=== PATIENT | male | born 1955 | race Caucasian/White ===

== ENCOUNTER 2019-11-23 09:18 | Inpatient (IN) ==
[2019-11-23] MEDS ORDERED: Aspirin 325 MG TABLET PO ONE (09:58)
[2019-11-23 10:02] LABS: Basophils # 0.1 K/mcL (0.0-0.2); Basophils % 0.4 %; Eosinophils # 0.1 K/mcL (0.0-0.6); Eosinophils % 0.8 %; Hematocrit 33.9 % (37.5-50.1); Hemoglobin 11.2 g/dL (12.9-16.9); Immature Granulocytes % 0.9 % (0-4); Lymphocytes # 1.1 K/mcL (0.6-4.6); Lymphocytes % 6.8 %; Mean Corpuscular Hemoglobin 32.7 pg (28.0-33.3); Mean Corpuscular Volume 98.8 fL (83.0-100.0); Monocytes # 1.5 K/mcL (0.0-1.3); Monocytes % 9.6 %; Neutrophils # 12.9 K/mcL (1.6-8.9); Platelet Count 286 K/mcL (140-400); Red Blood Count 3.43 M/mcL (4.19-5.50); Red Cell Distribution Width 15.6 % (11.5-14.5); Segmented Neutrophils % 81.5 %; White Blood Count 15.8 K/mcL (4.3-11.1)
[2019-11-23 10:12] LABS: Prothrombin Time 11.1 Seconds (9.4-12.1)
[2019-11-23 10:15] LABS: Activated Partial Thrombo Time 33.1 Seconds (26.0-36.0)
[2019-11-23 10:20] LABS: Albumin 3.3 g/dL (3.5-5.7); Albumin/Globulin Ratio 0.9 (1.1-2.2); Bilirubin,Direct 0.1 mg/dL (0.0-0.2); Bilirubin,Indirect 0.3 mg/dL (0.0-1.0); Bilirubin,Total 0.4 mg/dL (0.3-1.0); Calcium 9.2 mg/dL (8.6-10.3); Globulin 3.8 g/dL (2.4-3.5); Potassium 3.9 mEq/L (3.5-5.1); Total Protein 7.1 g/dL (6.4-8.9); Troponin I 56.94 ng/mL (< 0.04)
[2019-11-23] MEDS ORDERED: *HR* Heparin 5,000 UNIT/ML VIAL IVP PRN (10:30)
[2019-11-23] MEDS ORDERED: *HR* Heparin 5,000 UNIT/ML VIAL IVP ONE (10:30)
[2019-11-23] MEDS ORDERED: *HR* Ticagrelor 90 MG TABLET PO ONE (10:30)
[2019-11-23] MEDS ORDERED: Heparin 25,000 UNIT/250 ML D5W 25,000 UNIT/250 ML IV.SOLN IVC SCH (10:30)
[2019-11-23] MEDS ORDERED: ISOVUE-370 200 ML INFUS..BTL ONE ×2 (10:35→12:28)
[2019-11-23] MEDS ORDERED: 0.9 % Sodium Chloride 2,000 ML ONE (10:35)
[2019-11-23] MEDS ORDERED: *HR* Heparin 10,000 UNIT/10 ML VIAL ONE (10:35)
[2019-11-23] MEDS ORDERED: Nitroglycerin 1,000 MCG/10 ML VIAL IV ONE (10:35)
[2019-11-23] MEDS ORDERED: Heparin 1,000 UNITS/500 mL 500 ML ONE (10:35)
[2019-11-23] MEDS ORDERED: Aspirin 81 MG TAB.CHEW ONE (10:37)
[2019-11-23] MEDS ORDERED: *HR* Ticagrelor 90 MG TABLET ONE (10:37)
[2019-11-23] MEDS ORDERED: *HR* Bivalirudin 250 MG VIAL IVC ONE (11:29)
[2019-11-23] MEDS ORDERED: *HR* FentaNYL (PF) 100 MCG/2 ML VIAL ONE (11:30)
[2019-11-23] MEDS ORDERED: *HR* Midazolam HCl 2 MG/2 ML VIAL ONE (11:30)
[2019-11-23] MEDS ORDERED: Nitroglycerin 0.4 MG TAB.SUBL SL PRN (13:15)
[2019-11-23] MEDS ORDERED: Perflutren Lipid Microsphere 1.3 ML in 0.9 % Sodium Chloride 8.7 ML IVP PRN (13:15)
[2019-11-23 15:25] LABS: Hematocrit 30.8 % (37.5-50.1); Hemoglobin 10.3 g/dL (12.9-16.9); Mean Corpuscular HGB Conc 33.4 g/dL (31.6-35.5); Mean Corpuscular Volume 98.7 fL (83.0-100.0); Mean Platelet Volume 10.9 fL (9.4-12.4); Platelet Count 251 K/mcL (140-400); Red Blood Count 3.12 M/mcL (4.19-5.50); Red Cell Distribution Width 15.4 % (11.5-14.5); White Blood Count 12.9 K/mcL (4.3-11.1)
[2019-11-23 15:31] LABS: Heparin anti-factor XA UFH 0.15 IU/mL (0.30-0.70)
[2019-11-23 15:32] LABS: INR 1.3; Prothrombin Time 14.5 Seconds (9.4-12.1)
[2019-11-23] MEDS: Perit. Dialysis with Dex 2.5 % 2,000 ML PERITONEAL SCH ×2 (15:38→21:38)
[2019-11-23] MEDS: amLODIPine 5 MG TABLET PO SCH (15:48)
[2019-11-23] MEDS ORDERED: Perit. Dialysis with Dex 2.5 % 12,000 ML PERITONEAL ONE (20:00)
[2019-11-23] MEDS: Budesonide/Formoterol 160/4.5 1 PUFF INH IH SCH (21:59)
[2019-11-24 04:03] LABS: VBG Ionized Calcium 1.04 mmol/L (1.15-1.35)
[2019-11-24 04:03] LABS: Basophils % 0.3 %; Eosinophils # 0.1 K/mcL (0.0-0.6); Eosinophils % 0.7 %; Hematocrit 30.6 % (37.5-50.1); Hemoglobin 10.4 g/dL (12.9-16.9); Immature Granulocytes % 0.5 % (0-4); Lymphocytes # 0.8 K/mcL (0.6-4.6); Lymphocytes % 5.7 %; Mean Corpuscular Hemoglobin 32.7 pg (28.0-33.3); Mean Corpuscular Volume 96.2 fL (83.0-100.0); Mean Platelet Volume 10.9 fL (9.4-12.4); Monocytes # 1.4 K/mcL (0.0-1.3); Monocytes % 9.4 %; Neutrophils # 12.3 K/mcL (1.6-8.9); Platelet Count 265 K/mcL (140-400); Red Blood Count 3.18 M/mcL (4.19-5.50); Red Cell Distribution Width 15.3 % (11.5-14.5); Segmented Neutrophils % 83.4 %; White Blood Count 14.7 K/mcL (4.3-11.1)
[2019-11-24 04:19] LABS: Albumin 2.8 g/dL (3.5-5.7); Albumin/Globulin Ratio 0.9 (1.1-2.2); Bilirubin,Total 0.3 mg/dL (0.3-1.0); Calcium 8.6 mg/dL (8.6-10.3); Globulin 3.2 g/dL (2.4-3.5); Magnesium 1.4 mg/dL (1.6-2.6); Phosphorous 5.2 mg/dL (2.7-4.5); Potassium 3.6 mEq/L (3.5-5.1)
[2019-11-24 04:24] LABS: Troponin I 33.71 ng/mL (< 0.04)
[2019-11-24 04:25] LABS: Calcium 8.5 mg/dL (8.6-10.3); Chol/HDL Ratio 2.2 (0-4.9); Potassium 3.6 mEq/L (3.5-5.1)
[2019-11-24] MEDS ORDERED: *HR* Heparin 5,000 UNIT/ML VIAL SQ SCH (06:00)
[2019-11-24] MEDS: Perit. Dialysis with Dex 2.5 % 2,000 ML PERITONEAL SCH ×3 (08:20→17:37)
[2019-11-24] MEDS ORDERED: Renal Vitamin 1 CAP CAPSULE PO SCH (09:00)
[2019-11-24] MEDS ORDERED: Aspirin 81 MG TAB.CHEW PO SCH (09:00)
[2019-11-24] MEDS ORDERED: *HR* Ticagrelor 90 MG TABLET PO SCH (09:00)
[2019-11-24] MEDS: amLODIPine 5 MG TABLET PO SCH (09:13)
[2019-11-24] MEDS: PERIT DIALYSIS WITH DEX 2.5% PERITONEAL SCH ×2 (09:14→15:03)
[2019-11-24] MEDS ORDERED: Ondansetron ODT 4 MG TAB.RAPDIS PO PRN ×2 (09:56→15:51)
[2019-11-24] MEDS ORDERED: Ipratropium/Albuterol Neb 3 ML IH PRN (09:56)
[2019-11-24] MEDS ORDERED: Perit. Dialysis with Dex 2.5 % 12,000 ML PERITONEAL SCH ×2 (10:00→20:00)
[2019-11-24] MEDS: Budesonide/Formoterol 160/4.5 1 PUFF INH IH SCH ×2 (10:26→19:59)
[2019-11-24] MEDS ORDERED: Calcium Acetate 667 MG CAPSULE PO SCH (12:00)
[2019-11-24] MEDS ORDERED: Nitroglycerin 0.4 MG TAB.SUBL SL PRN (15:51)
[2019-11-24] MEDS: Calcium Acetate 667 MG CAPSULE PO SCH (17:38)
[2019-11-24] MEDS: *HR* Heparin 5,000 UNIT/ML VIAL SQ SCH (17:39)
[2019-11-24] MEDS: *HR* Ticagrelor 90 MG TABLET PO SCH (21:02)
[2019-11-24] MEDS: Ipratropium/Albuterol Neb 3 ML IH PRN (23:20)
[2019-11-25] MEDS: *HR* Heparin 5,000 UNIT/ML VIAL SQ SCH (05:57)
[2019-11-25 06:49] LABS: VBG Ionized Calcium 0.97 mmol/L (1.15-1.35)
[2019-11-25 06:51] LABS: Basophils % 0.3 %; Eosinophils # 0.1 K/mcL (0.0-0.6); Eosinophils % 0.4 %; Hematocrit 27.6 % (37.5-50.1); Hemoglobin 9.3 g/dL (12.9-16.9); Immature Granulocytes % 0.6 % (0-4); Lymphocytes # 0.8 K/mcL (0.6-4.6); Lymphocytes % 5.2 %; Mean Corpuscular HGB Conc 33.7 g/dL (31.6-35.5); Mean Corpuscular Hemoglobin 33.1 pg (28.0-33.3); Mean Corpuscular Volume 98.2 fL (83.0-100.0); Monocytes % 6.2 %; Neutrophils # 13.9 K/mcL (1.6-8.9); Platelet Count 254 K/mcL (140-400); Red Blood Count 2.81 M/mcL (4.19-5.50); Red Cell Distribution Width 15.4 % (11.5-14.5); Segmented Neutrophils % 87.3 %; White Blood Count 15.9 K/mcL (4.3-11.1)
[2019-11-25 07:08] LABS: Magnesium 1.7 mg/dL (1.6-2.6); Phosphorous 5.8 mg/dL (2.7-4.5)
[2019-11-25] MEDS: Ipratropium/Albuterol Neb 3 ML IH PRN (07:16)
[2019-11-25] MEDS: Budesonide/Formoterol 160/4.5 1 PUFF INH IH SCH (07:16)
[2019-11-25] MEDS: *HR* Ticagrelor 90 MG TABLET PO SCH (08:34)
[2019-11-25] MEDS: Calcium Acetate 667 MG CAPSULE PO SCH ×2 (08:35→11:57)
[2019-11-25] MEDS: PERIT DIALYSIS WITH DEX 2.5% PERITONEAL SCH (08:39)
[2019-11-25] MEDS: Perit. Dialysis with Dex 2.5 % 2,000 ML PERITONEAL SCH (08:39)
[2019-11-25] MEDS ORDERED: Cholecalciferol (D-3) 1,000 UNIT (25MCG) TABLET PO SCH ×2 (09:00)
[2019-11-25] MEDS ORDERED: VIT BCOMP C PO SCH (09:00)
[2019-11-25] MEDS ORDERED: [UNRECOGNIZED DRUG - OTHER] PO SCH (09:00)
[2019-11-25] MEDS ORDERED: Aspirin 81 MG TAB.CHEW PO SCH (09:00)
[2019-11-25] MEDS ORDERED: amLODIPine 5 MG TABLET PO SCH (09:00)
[2019-11-25] MEDS ORDERED: Furosemide 40 MG TABLET PO SCH ×2 (09:00)
[2019-11-25] MEDS ORDERED: Vitamin B Complex/Vit C/Vit E 1 EACH TABLET PO SCH (09:00)
[2019-11-25] MEDS ORDERED: NON-FORMULARY MEDICATION 1 EACH EACH (Calcium Carbonate/Vitamin D3 [Oyster Shell Calcium-V PO SCH (09:00)
[2019-11-25] MEDS ORDERED: Renal Vitamin 1 CAP CAPSULE PO SCH (09:00)
[2019-11-25] MEDS ORDERED: FOLIC ACID PO SCH (09:00)
[2019-11-25 10:47] VITALS: BP 124/60
== END 2019-11-25 15:09 | disposition home or self-care (01) | DRG 246 ==
LOC: EMEROOARM 09:18 → ICNU 13:05 → 2ANU 11-24 15:11
PROVIDERS: ADMIT Internal Medicine Interventional Cardiology; ATTEND Internal Medicine Interventional Cardiology

== ENCOUNTER 2020-05-02 06:24 | Observation (INO) ==
[2020-05-02] MEDS ORDERED: Aspirin 81 MG TAB.CHEW PO ONE (06:29)
[2020-05-02] MEDS ORDERED: Nitroglycerin 0.4 MG TAB.SUBL SL PRN (06:44)
[2020-05-02 07:06] LABS: INR 1.1; Prothrombin Time 12.5 Seconds (9.4-12.1)
[2020-05-02 07:09] LABS: Activated Partial Thrombo Time 30.9 Seconds (26.0-36.0)
[2020-05-02 07:12] LABS: Basophils % 0.3 %; Calcium 8.7 mg/dL (8.6-10.3); Eosinophils # 0.3 K/mcL (0.0-0.6); Eosinophils % 1.8 %; Hematocrit 28.5 % (37.5-50.1); Hemoglobin 9.2 g/dL (12.9-16.9); Immature Granulocytes % 0.7 % (0-4); Lymphocytes # 0.9 K/mcL (0.6-4.6); Lymphocytes % 6.8 %; Mean Corpuscular HGB Conc 32.3 g/dL (31.6-35.5); Mean Corpuscular Hemoglobin 30.9 pg (28.0-33.3); Mean Corpuscular Volume 95.6 fL (83.0-100.0); Mean Platelet Volume 10.8 fL (9.4-12.4); Monocytes # 1.8 K/mcL (0.0-1.3); Neutrophils # 10.5 K/mcL (1.6-8.9); Platelet Count 322 K/mcL (140-400); Potassium 3.7 mEq/L (3.5-5.1); Red Blood Count 2.98 M/mcL (4.19-5.50); Red Cell Distribution Width 13.4 % (11.5-14.5); Segmented Neutrophils % 77.4 %; White Blood Count 13.6 K/mcL (4.3-11.1)
[2020-05-02 07:18] LABS: Troponin I 0.08 ng/mL (< 0.04)
[2020-05-02] MEDS ORDERED: *HR* Heparin 5,000 UNIT/ML VIAL IVP ONE (07:58)
[2020-05-02] MEDS ORDERED: Heparin 25,000UNIT/250ML 1/2NS 25,000 UNIT/250 ML IV.SOLN IVC SCH (08:00)
[2020-05-02] MEDS ORDERED: Morphine Sulfate 2 MG/ML SYRINGE IVP ONE (08:00)
[2020-05-02] MEDS ORDERED: *HR* Heparin 5,000 UNIT/ML VIAL IVP PRN ×2 (08:15)
[2020-05-02] MEDS ORDERED: Ondansetron 4 MG/2 ML VIAL IVP PRN (09:00)
[2020-05-02] MEDS ORDERED: Naloxone 0.4 MG/ML INJ IVP PRN (09:00)
[2020-05-02] MEDS ORDERED: Perflutren Lipid Microsphere 1.3 ML in 0.9 % Sodium Chloride 8.7 ML IVP PRN (10:08)
[2020-05-02] MEDS ORDERED: *HR* Metoprolol 5 MG/5 ML VIAL IVP ONE ×2 (12:00→12:44)
[2020-05-02] MEDS ORDERED: Heparin 1,000 UNITS/500 mL 500 ML ONE (12:04)
[2020-05-02] MEDS ORDERED: 0.9 % Sodium Chloride 2,000 ML ONE (12:04)
[2020-05-02] MEDS ORDERED: ISOVUE-370 200 ML INFUS..BTL ONE ×2 (12:05→16:07)
[2020-05-02] MEDS ORDERED: Nitroglycerin 1,000 MCG/10 ML VIAL IV ONE (12:05)
[2020-05-02] MEDS ORDERED: *HR* Heparin 10,000 UNIT/10 ML VIAL ONE (12:05)
[2020-05-02] MEDS: *HR* Ticagrelor 90 MG TABLET PO SCH ×2 (12:26→19:44)
[2020-05-02 14:33] LABS: Influenza A PCR Negative (Negative); Influenza B PCR Negative (Negative); Resp. Syncytial Virus PCR Negative (Negative)
[2020-05-02 14:36] LABS: SARS-CoV-2 by PCR (In House) Negative (Negative)
[2020-05-02] MEDS: Budesonide/Formoterol 160/4.5 1 PUFF INH IH SCH ×2 (14:46→23:12)
[2020-05-02] MEDS: Levalbuterol Neb 0.63 MG/3 ML IH SCH ×2 (14:51→15:00)
[2020-05-02] MEDS ORDERED: *HR* FentaNYL (PF) 100 MCG/2 ML VIAL ONE (15:10)
[2020-05-02] MEDS ORDERED: *HR* Midazolam HCl 2 MG/2 ML VIAL ONE (15:10)
[2020-05-02] MEDS ORDERED: *HR* Bivalirudin 250 MG VIAL IVC ONE (15:41)
[2020-05-02] MEDS: Calcium Acetate 667 MG CAPSULE PO SCH (19:44)
[2020-05-02] MEDS ORDERED: Perit. Dialysis with Dex 1.5 % 12,000 ML PERITONEAL ONE (20:00)
[2020-05-02] MEDS ORDERED: *HR* Ticagrelor 90 MG TABLET PO SCH (21:00)
[2020-05-03 02:09] LABS: Basophils % 0.2 %; Eosinophils # 0.2 K/mcL (0.0-0.6); Eosinophils % 1.4 %; Hematocrit 26.1 % (37.5-50.1); Hemoglobin 8.6 g/dL (12.9-16.9); Immature Granulocytes % 0.4 % (0-4); Lymphocytes # 0.9 K/mcL (0.6-4.6); Lymphocytes % 7.4 %; Mean Corpuscular Hemoglobin 31.5 pg (28.0-33.3); Mean Corpuscular Volume 95.6 fL (83.0-100.0); Mean Platelet Volume 10.9 fL (9.4-12.4); Monocytes # 1.2 K/mcL (0.0-1.3); Monocytes % 10.8 %; Neutrophils # 9.2 K/mcL (1.6-8.9); Platelet Count 275 K/mcL (140-400); Red Blood Count 2.73 M/mcL (4.19-5.50); Red Cell Distribution Width 13.3 % (11.5-14.5); Segmented Neutrophils % 79.8 %; White Blood Count 11.5 K/mcL (4.3-11.1)
[2020-05-03 02:27] LABS: Calcium 7.8 mg/dL (8.6-10.3)
[2020-05-03] MEDS: *HR* Ticagrelor 90 MG TABLET PO SCH (08:39)
[2020-05-03] MEDS: Calcium Acetate 667 MG CAPSULE PO SCH ×2 (08:39→12:57)
[2020-05-03] MEDS ORDERED: Aspirin 81 MG TAB.CHEW PO SCH ×2 (09:00)
[2020-05-03] MEDS ORDERED: Cholecalciferol (D-3) 1,000 UNIT (25MCG) TABLET PO SCH (09:00)
[2020-05-03] MEDS ORDERED: amLODIPine 5 MG TABLET PO SCH (09:00)
[2020-05-03] MEDS ORDERED: Furosemide 40 MG TABLET PO SCH (09:00)
[2020-05-03 10:07] LABS: Magnesium 1.1 mg/dL (1.6-2.6)
[2020-05-03 10:23] VITALS: BP 136/80
[2020-05-03] MEDS: Budesonide/Formoterol 160/4.5 1 PUFF INH IH SCH (11:09)
[2020-05-03] MEDS ORDERED: predniSONE 20 MG TABLET PO SCH (11:15)
[2020-05-03] MEDS ORDERED: Ipratropium/Albuterol Neb 3 ML ONE (11:34)
[2020-05-03] MEDS: Ipratropium/Albuterol Neb 3 ML IH SCH ×2 (11:36→15:08)
== END 2020-05-03 16:48 | disposition home or self-care (01) ==
LOC: CDU 06:24 → EMEROOARM 06:24 → SUATTDRO 09:08 → CDU 10:36
PROVIDERS: ADMIT Internal Medicine; ATTEND Student in an Organized Health Care Education/Training Program

== ENCOUNTER 2020-06-07 13:59 | Inpatient (IN) ==
[~2020-06-07 13:59] MED LIST: *HR* Propofol 500 MG/50 ML BOTTLE IVP ONE; Lidocaine -MPF 2% 5 ML VIAL INFILT ONE
[2020-06-07 14:55] LABS: Basophils % 0.2 %; Eosinophils % 0.3 %; Hematocrit 17.6 % (37.5-50.1); Immature Granulocytes % 1.6 % (0-4); Lymphocytes % 7.6 %; Mean Corpuscular HGB Conc 31.8 g/dL (31.6-35.5); Mean Corpuscular Hemoglobin 30.4 pg (28.0-33.3); Mean Corpuscular Volume 95.7 fL (83.0-100.0); Mean Platelet Volume 10.6 fL (9.4-12.4); Monocytes # 0.8 K/mcL (0.0-1.3); Monocytes % 6.2 %; Platelet Count 308 K/mcL (140-400); Red Blood Count 1.84 M/mcL (4.19-5.50); Red Cell Distribution Width 14.8 % (11.5-14.5); Segmented Neutrophils % 84.1 %; White Blood Count 13.1 K/mcL (4.3-11.1)
[2020-06-07 15:12] LABS: Calcium 8.7 mg/dL (8.6-10.3); Potassium 4.7 mEq/L (3.5-5.1)
[2020-06-07 15:15] LABS: Troponin I 0.26 ng/mL (< 0.04)
[2020-06-07 15:17] LABS: Hemoglobin 5.6 g/dL (12.9-16.9)
[2020-06-07] MEDS ORDERED: Pantoprazole 40 MG VIAL IVP ONE (15:23)
[2020-06-07 15:31] LABS: INR 1.1; Prothrombin Time 12.4 Seconds (9.4-12.1)
[2020-06-07 15:34] LABS: Activated Partial Thrombo Time 28.5 Seconds (26.0-36.0)
[2020-06-07 15:35] LABS: Polychromasia 1+ (Not Present)
[2020-06-07 15:36] LABS: Albumin 3.1 g/dL (3.5-5.7); Bilirubin,Direct 0.1 mg/dL (0.0-0.2); Bilirubin,Indirect 0.2 mg/dL (0.0-1.0); Bilirubin,Total 0.3 mg/dL (0.3-1.0); Magnesium 1.1 mg/dL (1.6-2.6); Phosphorous 4.5 mg/dL (2.7-4.5); Total Protein 6.1 g/dL (6.4-8.9)
[2020-06-07 15:37] LABS: Poikilocytosis 1+ (Not Present)
[2020-06-07] MEDS ORDERED: 0.9 % Sodium Chloride 250 ML ONE ×2 (16:47→21:30)
[2020-06-07] MEDS ORDERED: Naloxone 0.4 MG/ML INJ IVP PRN (16:50)
[2020-06-07] MEDS ORDERED: Ondansetron 4 MG/2 ML VIAL IVP PRN (16:50)
[2020-06-07] MEDS ORDERED: Perit. Dialysis with Dex 1.5 % 6,000 ML PERITONEAL ONE (19:00)
[2020-06-07] MEDS ORDERED: Perit. Dialysis with Dex 2.5 % 6,000 ML PERITONEAL ONE (19:00)
[2020-06-07] MEDS: Gentamicin Oint 15 GM TUBE TP SCH (19:40)
[2020-06-07] MEDS: Pantoprazole 40 MG VIAL IVP SCH (20:36)
[2020-06-07] MEDS: Levalbuterol Neb 0.63 MG/3 ML IH SCH (21:43)
[2020-06-07] MEDS: Budesonide/Formoterol 160/4.5 1 PUFF INH IH SCH (21:44)
[2020-06-07 22:08] LABS: Hematocrit 17.6 % (37.5-50.1)
[2020-06-07 22:11] LABS: Hemoglobin 5.8 g/dL (12.9-16.9)
[2020-06-08 02:42] LABS: Hematocrit 19.5 % (37.5-50.1); Hemoglobin 6.6 g/dL (12.9-16.9)
[2020-06-08 02:45] LABS: INR 1.1; Prothrombin Time 12.5 Seconds (9.4-12.1)
[2020-06-08 03:01] LABS: Calcium 8.2 mg/dL (8.6-10.3); Potassium 4.2 mEq/L (3.5-5.1)
[2020-06-08] MEDS ORDERED: 0.9 % Sodium Chloride 250 ML IVC SCH (03:15)
[2020-06-08] MEDS: Levalbuterol Neb 0.63 MG/3 ML IH SCH ×4 (03:46→21:57)
[2020-06-08 08:26] LABS: Hematocrit 21.6 % (37.5-50.1); Hemoglobin 7.4 g/dL (12.9-16.9)
[2020-06-08 08:27] LABS: Basophils % 0.2 %; Eosinophils # 0.1 K/mcL (0.0-0.6); Hematocrit 21.5 % (37.5-50.1); Hemoglobin 7.2 g/dL (12.9-16.9); Immature Granulocytes % 0.9 % (0-4); Lymphocytes # 1.5 K/mcL (0.6-4.6); Lymphocytes % 12.8 %; Mean Corpuscular HGB Conc 33.5 g/dL (31.6-35.5); Mean Corpuscular Hemoglobin 30.4 pg (28.0-33.3); Mean Corpuscular Volume 90.7 fL (83.0-100.0); Mean Platelet Volume 10.3 fL (9.4-12.4); Monocytes # 1.6 K/mcL (0.0-1.3); Monocytes % 13.3 %; Neutrophils # 8.4 K/mcL (1.6-8.9); Platelet Count 211 K/mcL (140-400); Red Blood Count 2.37 M/mcL (4.19-5.50); Red Cell Distribution Width 15.4 % (11.5-14.5); Segmented Neutrophils % 71.8 %; White Blood Count 11.7 K/mcL (4.3-11.1)
[2020-06-08] MEDS: Calcium Acetate 667 MG CAPSULE PO SCH ×3 (09:31→16:13)
[2020-06-08] MEDS: Furosemide 40 MG TABLET PO SCH (09:31)
[2020-06-08] MEDS: Aspirin 81 MG TAB.CHEW PO SCH (09:31)
[2020-06-08] MEDS: Pantoprazole 40 MG VIAL IVP SCH ×2 (09:32→16:45)
[2020-06-08 10:22] LABS: Hematocrit 22.1 % (37.5-50.1); Hemoglobin 7.4 g/dL (12.9-16.9)
[2020-06-08] MEDS ORDERED: 0.9 % Sodium Chloride 250 ML ONE (11:44)
[2020-06-08] MEDS: Budesonide/Formoterol 160/4.5 1 PUFF INH IH SCH ×2 (11:46→21:57)
[2020-06-08] MEDS ORDERED: Lidocaine -MPF 2% 2 ML VIAL ONE (14:24)
[2020-06-08] MEDS ORDERED: *HR* Propofol 200 MG/20 ML VIAL IVP ONE (14:24)
[2020-06-08 17:33] LABS: Hematocrit 25.8 % (37.5-50.1); Hemoglobin 8.7 g/dL (12.9-16.9)
[2020-06-08 17:58] LABS: % Iron Saturation 19 % (20-55); Iron 60 mcg/dL (65-175); Transferrin 221 mg/dL (203-362)
[2020-06-08 18:14] LABS: Ferritin 676 ng/mL (20-250)
[2020-06-08] MEDS: Perit. Dialysis with Dex 2.5 % 6,000 ML PERITONEAL SCH (18:37)
[2020-06-08] MEDS: Perit. Dialysis with Dex 1.5 % 6,000 ML PERITONEAL SCH (18:38)
[2020-06-08] MEDS: Iron Sucrose Complex 250 MG in 0.9 % Sodium Chloride 250 ML IVPB SCH (19:30)
[2020-06-08 23:14] LABS: Hematocrit 24.2 % (37.5-50.1); Hemoglobin 8.3 g/dL (12.9-16.9)
[2020-06-09] MEDS: Levalbuterol Neb 0.63 MG/3 ML IH SCH ×5 (03:31→22:19)
[2020-06-09 04:30] LABS: Potassium 4.5 mEq/L (3.5-5.1)
[2020-06-09] MEDS: Pantoprazole 40 MG VIAL IVP SCH ×2 (05:13→17:51)
[2020-06-09] MEDS ORDERED: Darbepoetin 100 MCG/0.5 ML SYRINGE SQ SCH (07:15)
[2020-06-09] MEDS: Budesonide/Formoterol 160/4.5 1 PUFF INH IH SCH ×2 (07:55→22:19)
[2020-06-09 08:13] LABS: Basophils % 0.3 %; Eosinophils # 0.1 K/mcL (0.0-0.6); Eosinophils % 1.1 %; Hematocrit 22.7 % (37.5-50.1); Hemoglobin 7.8 g/dL (12.9-16.9); Lymphocytes # 1.6 K/mcL (0.6-4.6); Mean Corpuscular HGB Conc 34.4 g/dL (31.6-35.5); Mean Corpuscular Hemoglobin 30.5 pg (28.0-33.3); Mean Corpuscular Volume 88.7 fL (83.0-100.0); Mean Platelet Volume 10.7 fL (9.4-12.4); Monocytes # 1.5 K/mcL (0.0-1.3); Monocytes % 12.5 %; Neutrophils # 8.6 K/mcL (1.6-8.9); Platelet Count 200 K/mcL (140-400); Red Blood Count 2.56 M/mcL (4.19-5.50); Red Cell Distribution Width 15.6 % (11.5-14.5); Segmented Neutrophils % 72.1 %; White Blood Count 11.9 K/mcL (4.3-11.1)
[2020-06-09] MEDS ORDERED: 0.9 % Sodium Chloride 250 ML ONE (09:42)
[2020-06-09] MEDS: Perit. Dialysis with Dex 1.5 % 6,000 ML PERITONEAL SCH (10:12)
[2020-06-09] MEDS: Gentamicin Oint 15 GM TUBE TP SCH (10:12)
[2020-06-09] MEDS: Perit. Dialysis with Dex 2.5 % 6,000 ML PERITONEAL SCH (10:13)
[2020-06-09] MEDS: Iron Sucrose Complex 250 MG in 0.9 % Sodium Chloride 250 ML IVPB SCH (10:14)
[2020-06-09] MEDS: Calcium Acetate 667 MG CAPSULE PO SCH ×3 (10:26→16:20)
[2020-06-09] MEDS: Furosemide 40 MG TABLET PO SCH (11:59)
[2020-06-09] MEDS: Cyanocobalamin (B-12) 1,000 MCG/ML VIAL SQ SCH (11:59)
[2020-06-09] MEDS: Aspirin 81 MG TAB.CHEW PO SCH (11:59)
[2020-06-09 15:29] LABS: Basophils % 0.3 %; Eosinophils # 0.1 K/mcL (0.0-0.6); Eosinophils % 0.8 %; Hematocrit 24.7 % (37.5-50.1); Hemoglobin 8.5 g/dL (12.9-16.9); Immature Granulocytes % 0.8 % (0-4); Lymphocytes # 1.2 K/mcL (0.6-4.6); Lymphocytes % 10.1 %; Mean Corpuscular HGB Conc 34.4 g/dL (31.6-35.5); Mean Corpuscular Hemoglobin 30.7 pg (28.0-33.3); Mean Corpuscular Volume 89.2 fL (83.0-100.0); Mean Platelet Volume 10.7 fL (9.4-12.4); Monocytes # 1.3 K/mcL (0.0-1.3); Monocytes % 11.4 %; Neutrophils # 8.9 K/mcL (1.6-8.9); Platelet Count 191 K/mcL (140-400); Red Blood Count 2.77 M/mcL (4.19-5.50); Red Cell Distribution Width 15.3 % (11.5-14.5); Segmented Neutrophils % 76.6 %; White Blood Count 11.6 K/mcL (4.3-11.1)
[2020-06-09] MEDS ORDERED: SODIUM CHLORIDE/NAHCO3/KCL/PEG 4,000 ML SOLN.RECON PO ONE (17:00)
[2020-06-09] MEDS ORDERED: Perit. Dialysis with Dex 2.5 % 6,000 ML PERITONEAL ONE (19:00)
[2020-06-09] MEDS ORDERED: Perit. Dialysis with Dex 1.5 % 6,000 ML PERITONEAL ONE (19:00)
[2020-06-10 06:20] LABS: Hematocrit 25.3 % (37.5-50.1); Hemoglobin 8.7 g/dL (12.9-16.9); Mean Corpuscular HGB Conc 34.4 g/dL (31.6-35.5); Mean Corpuscular Hemoglobin 30.9 pg (28.0-33.3); Mean Corpuscular Volume 89.7 fL (83.0-100.0); Mean Platelet Volume 10.9 fL (9.4-12.4); Platelet Count 191 K/mcL (140-400); Red Blood Count 2.82 M/mcL (4.19-5.50); Red Cell Distribution Width 14.9 % (11.5-14.5); White Blood Count 10.5 K/mcL (4.3-11.1)
[2020-06-10 06:35] LABS: Calcium 8.2 mg/dL (8.6-10.3); Potassium 3.8 mEq/L (3.5-5.1)
[2020-06-10] MEDS: Pantoprazole 40 MG VIAL IVP SCH ×2 (06:36→18:05)
[2020-06-10] MEDS: Gentamicin Oint 15 GM TUBE TP SCH ×2 (06:39→19:33)
[2020-06-10] MEDS: Calcium Acetate 667 MG CAPSULE PO SCH ×3 (08:17→18:01)
[2020-06-10] MEDS ORDERED: *HR* Metoprolol 5 MG/5 ML VIAL IVP ONE (10:47)
[2020-06-10] MEDS ORDERED: *HR* Midazolam HCl 2 MG/2 ML VIAL ONE (10:49)
[2020-06-10] MEDS: Levalbuterol Neb 0.63 MG/3 ML IH SCH ×3 (10:51→21:08)
[2020-06-10] MEDS: Budesonide/Formoterol 160/4.5 1 PUFF INH IH SCH ×2 (10:52→21:10)
[2020-06-10] MEDS ORDERED: Lidocaine -MPF 2% 2 ML VIAL ONE (11:02)
[2020-06-10] MEDS: Aspirin 81 MG TAB.CHEW PO SCH (12:13)
[2020-06-10] MEDS: Cyanocobalamin (B-12) 1,000 MCG/ML VIAL SQ SCH (12:13)
[2020-06-10] MEDS: Furosemide 40 MG TABLET PO SCH (12:13)
[2020-06-10] MEDS: Perit. Dialysis with Dex 2.5 % 6,000 ML PERITONEAL SCH ×2 (12:39→15:29)
[2020-06-10] MEDS: Perit. Dialysis with Dex 1.5 % 6,000 ML PERITONEAL SCH ×2 (12:39→15:29)
[2020-06-10] MEDS: Iron Sucrose Complex 250 MG in 0.9 % Sodium Chloride 250 ML IVPB SCH (13:01)
[2020-06-10] MEDS ORDERED: Perit. Dialysis with Dex 2.5 % 6,000 ML PERITONEAL ONE (19:00)
[2020-06-10] MEDS ORDERED: Perit. Dialysis with Dex 1.5 % 6,000 ML PERITONEAL ONE (19:00)
[2020-06-10] MEDS: *HR* Ticagrelor 90 MG TABLET PO SCH (20:14)
[2020-06-11] MEDS: Levalbuterol Neb 0.63 MG/3 ML IH SCH ×4 (03:28→20:53)
[2020-06-11] MEDS: Pantoprazole 40 MG VIAL IVP SCH (05:37)
[2020-06-11 07:36] LABS: Basophils % 0.2 %; Eosinophils # 0.2 K/mcL (0.0-0.6); Eosinophils % 1.3 %; Hematocrit 20.7 % (37.5-50.1); Immature Granulocytes % 0.9 % (0-4); Lymphocytes # 1.3 K/mcL (0.6-4.6); Lymphocytes % 10.4 %; Mean Corpuscular HGB Conc 33.8 g/dL (31.6-35.5); Mean Corpuscular Hemoglobin 30.4 pg (28.0-33.3); Monocytes # 1.6 K/mcL (0.0-1.3); Neutrophils # 8.9 K/mcL (1.6-8.9); Nucleated Red Blood Cells 0.3 /100 WBC (0); Platelet Count 176 K/mcL (140-400); Red Cell Distribution Width 15.1 % (11.5-14.5); Segmented Neutrophils % 74.2 %
[2020-06-11] MEDS: Cyanocobalamin (B-12) 1,000 MCG/ML VIAL SQ SCH (08:38)
[2020-06-11] MEDS: *HR* Ticagrelor 90 MG TABLET PO SCH ×2 (08:38→19:52)
[2020-06-11] MEDS: Aspirin 81 MG TAB.CHEW PO SCH (08:38)
[2020-06-11] MEDS: Furosemide 40 MG TABLET PO SCH (08:38)
[2020-06-11 08:44] LABS: Potassium 3.5 mEq/L (3.5-5.1)
[2020-06-11] MEDS: Calcium Acetate 667 MG CAPSULE PO SCH ×3 (08:44→16:10)
[2020-06-11] MEDS: Iron Sucrose Complex 250 MG in 0.9 % Sodium Chloride 250 ML IVPB SCH (08:46)
[2020-06-11] MEDS ORDERED: Metoprolol XL (24 HR) Succ 25 MG TAB.ER.24H PO SCH (09:00)
[2020-06-11] MEDS: Perit. Dialysis with Dex 1.5 % 6,000 ML PERITONEAL SCH ×2 (11:20→14:03)
[2020-06-11] MEDS: Perit. Dialysis with Dex 2.5 % 6,000 ML PERITONEAL SCH ×2 (11:20→14:03)
[2020-06-11] MEDS: Budesonide/Formoterol 160/4.5 1 PUFF INH IH SCH ×2 (11:21→20:53)
[2020-06-11] MEDS ORDERED: Perit. Dialysis with Dex 1.5 % 6,000 ML PERITONEAL ONE (19:00)
[2020-06-11] MEDS ORDERED: Perit. Dialysis with Dex 2.5 % 6,000 ML PERITONEAL ONE (19:00)
[2020-06-11] MEDS: Gentamicin Oint 15 GM TUBE TP SCH (20:53)
[2020-06-11 22:10] LABS: Hematocrit 29.5 % (37.5-50.1); Hemoglobin 9.8 g/dL (12.9-16.9); Immature Reticulocyte % 38.1 % (11.0-38.0); Retculocyte # 0.12 M/mcL (0.05-0.10); Reticulocyte % 3.6 % (1.6-2.8)
[2020-06-11 22:28] LABS: Albumin 2.8 g/dL (3.5-5.7); Bilirubin,Direct 0.1 mg/dL (0.0-0.2); Bilirubin,Indirect 0.3 mg/dL (0.0-1.0); Bilirubin,Total 0.4 mg/dL (0.3-1.0); Globulin 2.7 g/dL (2.4-3.5); Total Protein 5.5 g/dL (6.4-8.9)
[2020-06-12 01:03] LABS: Basophils % 0.3 %; Eosinophils # 0.1 K/mcL (0.0-0.6); Eosinophils % 1.1 %; Hematocrit 25.5 % (37.5-50.1); Hemoglobin 8.6 g/dL (12.9-16.9); Immature Granulocytes % 1.2 % (0-4); Lymphocytes % 7.5 %; Mean Corpuscular HGB Conc 33.7 g/dL (31.6-35.5); Mean Corpuscular Hemoglobin 29.9 pg (28.0-33.3); Mean Corpuscular Volume 88.5 fL (83.0-100.0); Mean Platelet Volume 11.1 fL (9.4-12.4); Monocytes # 1.7 K/mcL (0.0-1.3); Monocytes % 12.9 %; Neutrophils # 9.9 K/mcL (1.6-8.9); Nucleated Red Blood Cells 0.3 /100 WBC (0); Platelet Count 176 K/mcL (140-400); Red Blood Count 2.88 M/mcL (4.19-5.50); White Blood Count 12.9 K/mcL (4.3-11.1)
[2020-06-12 01:25] LABS: Calcium 8.1 mg/dL (8.6-10.3); Potassium 3.4 mEq/L (3.5-5.1)
[2020-06-12 01:26] LABS: Albumin 2.5 g/dL (3.5-5.7); Bilirubin,Indirect 0.3 mg/dL (0.0-1.0); Bilirubin,Total 0.3 mg/dL (0.3-1.0); Globulin 2.4 g/dL (2.4-3.5); Total Protein 4.9 g/dL (6.4-8.9)
[2020-06-12] MEDS: Levalbuterol Neb 0.63 MG/3 ML IH SCH ×2 (03:35→10:04)
[2020-06-12 07:12] VITALS: BP 119/66
[2020-06-12] MEDS: Aspirin 81 MG TAB.CHEW PO SCH (08:00)
[2020-06-12] MEDS: Calcium Acetate 667 MG CAPSULE PO SCH (08:00)
[2020-06-12] MEDS: *HR* Ticagrelor 90 MG TABLET PO SCH (08:00)
[2020-06-12] MEDS: Furosemide 40 MG TABLET PO SCH (08:00)
[2020-06-12] MEDS: Iron Sucrose Complex 250 MG in 0.9 % Sodium Chloride 250 ML IVPB SCH (08:01)
[2020-06-12] MEDS: Cyanocobalamin (B-12) 1,000 MCG/ML VIAL SQ SCH (08:01)
[2020-06-12] MEDS ORDERED: Cyanocobalamin (B-12) 1,000 MCG TABLET PO SCH (09:00)
[2020-06-12] MEDS: Budesonide/Formoterol 160/4.5 1 PUFF INH IH SCH (10:04)
== END 2020-06-12 12:10 | disposition home or self-care (01) | DRG 377 ==
LOC: 2ANU 13:59 → EMEROOARM 13:59 → SUATTDRO 17:08 → 2ANU 18:45
PROVIDERS: ADMIT Internal Medicine; ATTEND Internal Medicine